=== PATIENT | male | born 1975 | race Caucasian/White ===

== ENCOUNTER 2017-11-18 10:05 | Emergency (ER) | payer MEDICAID ==
[~2017-11-18] VITALS: Ht 180.3 cm; Wt 68.0 kg
[2017-11-18] MEDS ORDERED: SODIUM CHLORIDE 0.9% 1,000 ML IVB ONE (10:51)
[2017-11-18] MEDS ORDERED: KETOROLAC TROMETH 30 MG/ML 1ML VIAL IV ONE (11:00)
[2017-11-18] MEDS ORDERED: ONDANSETRON HCL 4 MG/2 ML VIAL IV ONE (11:00)
[2017-11-18 11:22] LABS: Basophils # (auto) 0 uL; Eosinophils # (auto) 0 uL; Hemoglobin 15.8 g/dL (13.5-17.5); Lymphocytes # (auto) 1.6 uL; Nucleated Red Blood Cells % 0.1 %
[2017-11-18 11:24] LABS: Basophils % (auto) 0.5 % (0.0-2.0); Eosinophils % (auto) 0.5 % (0.0-7.0); Lymphocytes % (auto) 20.8 % (10.0-50.0); Mean Corpuscular Hemoglobin 34.6 pg (28.0-32.0); Mean Corpuscular Hgb Conc. 35.1 g/dL (32.0-36.0); Mean Corpuscular Volume 98.5 fL (80.0-100.0); Monocytes # (auto) 0.8 uL; Monocytes % (auto) 10.8 % (0.0-12.0); Neutrophils # (auto) 5.2 uL; Neutrophils % (auto) 67.4 % (37.0-80.0); Platelet Count (auto) 184 10^3/uL (140-450); Red Blood Cells 4.56 10^6/uL (4.5-5.90); Red Cell Distribution Width 13.8 % (11.8-14.3); White Blood Cell 7.7 10^3/uL (4.4-10.8)
[2017-11-18 11:36] LABS: Amylase 82 U/L (25-115); Lipase 329 U/L (73-393)
[2017-11-18 12:17] LABS: Urine Bacteria NONE SEEN /hpf (None Seen); Urine Blood Negative /uL (Negative); Urine Specific Gravity 1.012 (1.001-1.035); Urine WBC <1 /hpf (0 - 3)
[2017-11-18 12:25] VITALS: BP 130/86
[2017-11-18 12:45] LABS: BUN/Creatinine Ratio 23.3; Bilirubin, Total 1.5 mg/dL (0.2-1.0); Calcium 9.4 mg/dL (8.5-10.1); Potassium 3.1 mmol/L (3.5-5.1); Total Protein 8.7 g/dL (6.4-8.2)
== END 2017-11-18 13:16 | disposition home or self-care (01) ==
LOC: ER 10:05
DX: K29.70 Gastritis, unspecified, without bleeding (principal); I10 Essential (primary) hypertension; M54.9 Dorsalgia, unspecified; G89.29 Other chronic pain; F17.210 Nicotine dependence, cigarettes, uncomplicated; Z88.0 Allergy status to penicillin
CPT/HCPCS: 36415; 74176; 80053; 81001; 82150; 83690; 84484; 85025; 94761; 96361; 96374; 96375; 99285; J1885; J2405; J7030

== ENCOUNTER 2018-11-08 14:45 | Emergency (ER) | payer MEDICAID ==
[~2018-11-08] VITALS: Ht 177.8 cm; Wt 77.1 kg
[2018-11-08 14:59] VITALS: BP 128/72
[2018-11-08 15:32] LABS: Basophils # (auto) 0.2 uL; Basophils % (auto) 2.6 % (0.0-2.0); Eosinophils # (auto) 0.2 uL; Eosinophils % (auto) 3.5 % (0.0-7.0); Hematocrit 45.8 % (41.0-53.0); Hemoglobin 14.9 g/dL (13.5-17.5); Lymphocytes % (auto) 33.7 % (10.0-50.0); Mean Corpuscular Hemoglobin 31.6 pg (28.0-32.0); Mean Corpuscular Hgb Conc. 32.4 g/dL (32.0-36.0); Mean Corpuscular Volume 97.3 fL (80.0-100.0); Monocytes # (auto) 0.6 uL; Monocytes % (auto) 10.4 % (0.0-12.0); Neutrophils % (auto) 49.8 % (37.0-80.0); Platelet Count (auto) 281 10^3/uL (140-450); Red Cell Distribution Width 13.6 % (11.8-14.3)
[2018-11-08 15:49] LABS: Albumin 3.9 g/dL (3.4-5.0); Calcium 8.4 mg/dL (8.5-10.1); Potassium 3.8 mmol/L (3.5-5.1)
[2018-11-08 15:52] LABS: BUN/Creatinine Ratio 15.5; Bilirubin, Total 0.7 mg/dL (0.2-1.0); Total Protein 8.2 g/dL (6.4-8.2)
[2018-11-08 16:19] LABS: Salicylate < 1.7 mg/dL (2.8-20.0)
[2018-11-08 16:24] LABS: Acetaminophen < 2.0 ug/mL (10-30)
[2018-11-08] MEDS ORDERED: SODIUM CHLORIDE 0.9% 1,000 ML IV ONE (17:45)
[2018-11-08] MEDS ORDERED: FOLIC ACID 1 MG, MULTIPLE VITAMIN 10 ML, MAGNESIUM SULF SDV 50% 8 MEQ, THIAMINE INJ 100... INJ SCH ×5 (18:15)
== END 2018-11-08 18:22 | disposition left against medical advice (07) ==
LOC: EDBD 14:45 → ER 14:47
DX: F10.10 Alcohol abuse, uncomplicated (principal); R45.851 Suicidal ideations; Z53.21 Procedure and treatment not carried out due to patient leaving prior to being seen by health care provider
CPT/HCPCS: 36415; 80053; 80320; 80329; 85025; J3411; J3475; J7030

== ENCOUNTER 2018-11-09 14:46 | Emergency (ER) | payer MEDICAID ==
[~2018-11-09] VITALS: Ht 180.3 cm; Wt 45.4 kg
[2018-11-09 15:02] VITALS: BP 135/98
== END 2018-11-09 16:34 | disposition left against medical advice (07) ==
LOC: ER 14:46
DX: F15.10 Other stimulant abuse, uncomplicated (principal); F41.9 Anxiety disorder, unspecified; F32.9 Major depressive disorder, single episode, unspecified; F17.210 Nicotine dependence, cigarettes, uncomplicated